=== PATIENT | male | born 1965 | race American Indian/Alaskan Native ===

== ENCOUNTER 2016-10-05 11:48 | Emergency (ER) | payer MEDICAID ==
[2016-10-05 12:08] VITALS: BP 135/39
[2016-10-05] MEDS ORDERED: Acetaminophen/oxyCODONE 325-5 MG Tab PO ONE (12:30)
[2016-10-05] MEDS ORDERED: Cyclobenzaprine 10 MG Tab PO ONE (12:30)
--- NOTE | 2016-10-05 12:36 | EDM.PDOC ---
ED HPI LOWER BACK PAIN/INJURY - General Chief Complaint: Back Pain or Injury Stated Complaint: BACK PAIN Time Seen by Provider: 10/05/16 12:16 Source: Reports: Patient, Old records, RN notes reviewed - History of Present Illness INITIAL COMMENTS - FREE TEXT/NARRATIVE: 51-year-old gentleman presents emergency Department with a complaint of back pain, he was in the emergency department in [facility] on September 29 for complaints of back pain used a variety of medications including Toradol, Dilaudid, morphine, Benadryl, Reglan to get his pain under control he went through an MRI procedure of the lumbar spine which demonstrated mild spinal stenosis predominantly L3-L4 region with left foraminal stenosis. He was discharged home with hydrocodone for pain control asked to follow up with his primary care in 2-3 days if no improvement. He states he has not been able to get out of bed because the pain is so severe asked him if the hydrocodone helps her pain control he states he does not know. He declines any injections or needles but preferred to have oral medication. Denies any loss of bowel or bladder. Does complain of shooting pains down the right leg Review of the [place] prescription drug monitoring site shows the only narcotic prescriptions with the ones provided from the [place] emergency department on September 29 - Related Data Allergies/ADRs: Allergies Allergy/AdvReac Type Severity Reaction Status Date / Time codeine Allergy Nausea Verified 10/05/16 12:09 Home Meds: Home Meds Gabapentin [Neurontin] 300 mg PO QID 10/05/16 [History] Past Medical History Musculoskeletal History: Reports: Back pain, chronic, Connective tissue disease - Past Surgical History Other Musculoskeletal Surgeries/Procedures:: bulging disk upper back. Social & Family History - Tobacco Use Smoking Status *Q: Light Tobacco Smoker Years of Tobacco use: 1 Packs/Tins Daily: 30 - Caffeine Use Caffeine Use: Reports: Coffee, Soda - Recreational Drug Use Recreational Drug Use: No ED ROS GENERAL - Review of Systems Review Of Systems: See Below Constitutional: Reports: no symptoms Respiratory: Reports: No Symptoms Cardiovascular: Reports: No symptoms Musculoskeletal: Reports: back pain Neurological: Reports: Paresthesia, Tingling ED EXAM,LOWER BACK PAIN/INJURY - Physical Exam Exam: See Below Text/Narrative:: In general this is a 51-year-old gentleman who is in moderate discomfort secondary to pain unable to answer questions other than single word sentences very poor historian and vague with his responses routinely says he does not know when asked about treatments with a provided help or not. He is alert and orientated x3. Examination of the back and appreciate any abnormality he has limited range of motion secondary to pain he is tender to palpation along the right paraspinal muscles with no vertebral tenderness. Patella reflex is 2+ bilaterally he will not tolerate a straight leg raise test has difficulty sitting still secondary to pain Exam Limited By: No limitations General Appearance: alert, moderate distress Respiratory/Chest: no respiratory distress Course - Vital Signs Last Recorded V/S: Last Vital Signs Temp 97.3 F 10/05/16 12:14 Pulse 80 10/05/16 12:14 Resp 20 10/05/16 12:14 BP 135/39 L 10/05/16 12:14 Pulse Ox 96 10/05/16 12:14 - Orders/Labs/Meds Meds: Medications Discontinued Medications Generic Name Dose Route Start Last Admin Trade Name Yumiko PRN Reason Stop Dose Admin Cyclobenzaprine HCl 10 mg 10/05/16 12:30 10/05/16 12:39 Flexeril PO 10/05/16 12:31 10 mg ONETIME ONE Administration Fentanyl 100 mcg 10/05/16 13:18 10/05/16 13:25 Sublimaze NASBOTH 10/05/16 13:19 100 mcg ONETIME ONE Administration Oxycodone/Acetaminophen 1 tab 10/05/16 12:30 10/05/16 12:40 Percocet 325-5 Mg PO 10/05/16 12:31 1 tab ONETIME ONE Administration Departure - Departure Time of Disposition: 14:39 Disposition: Home, Self-Care 01 Condition: good Clinical Impression: Back pain Qualifiers: Back pain location: low back pain Chronicity: chronic Back pain laterality: right Sciatica presence: without sciatica Qualified Code(s): M54.5 - Low back pain; G89.29 - Other chronic pain Forms: ED Department Discharge Additional Instructions: Use ibuprofen as needed for baseline pain control, use hydrocodone for breakthrough pain, Please followup with your primary care provider in 3-5 days if not better, please call return to the emergency department with worsening of symptoms. - Assessment/Plan Plan: Assessment Acuity = acute on chronic Site and laterality = low back pain with a history of mild spinal stenosis at L3 -L4 Etiology = probable bulging disc pathology Manifestations = pain Location of injury = home Lab values = none Plan He had some relief with the Flexeril, Percocet and intranasal fentanyl, he would like to try an abdominal binder for back support and prescription written for 10 hydrocodone Patient was in agreement with the plan all questions were answered, they were instructed to return to the emergency department or call for worsening symptoms. This note was dictated using [employer] voice recognition software please call with any questions.
[2016-10-05] MEDS ORDERED: fentaNYL 100 MCG/2 ML SDV NASBOTH ONE (13:18)
== END 2016-10-05 14:46 | disposition home or self-care (01) ==
LOC: JP.ED 11:48
DX: M54.5 Low back pain (principal); F17.210 Nicotine dependence, cigarettes, uncomplicated; Z88.5 Allergy status to narcotic agent
CPT/HCPCS: 99283; A9270; J3010

== ENCOUNTER 2020-02-17 20:41 | Emergency (ER) | payer SELFPAY ==
[2020-02-17 20:52] VITALS: BP 143/87; PULSE 87
--- NOTE | 2020-02-17 21:00 | EDM.PDOC ---
ED HPI GENERAL MEDICAL PROBLEM - General Chief Complaint: Lower Extremity Injury/Pain Stated Complaint: LEFT KNEE PAIN Time Seen by Provider: 02/17/20 20:54 Source of Information: Reports: Patient History Limitations: Reports: No Limitations - History of Present Illness INITIAL COMMENTS - FREE TEXT/NARRATIVE: 54 yo male present with left knee pain. 1 week ago he twisted knee and has had pain since it does pop and has increasing pain. He has no hx of injury to knee. no other complaints Left Knee Pain Score (Numeric/FACES): 7 - Related Data Allergies Allergy/AdvReac Type Severity Reaction Status Date / Time codeine Allergy Nausea Verified 02/17/20 20:50 Home Meds: Home Meds NK [No Known Home Meds] 02/17/20 [History] Past Medical History Musculoskeletal History: Reports: Back Pain, Chronic, Connective Tissue Disease, Fracture Neurological History: Reports: Brain Injury, Head Trauma - Infectious Disease History Infectious Disease History: Reports: Chicken Pox, Shingles - Past Surgical History Other Musculoskeletal Surgeries/Procedures:: bulging disk upper back. Social & Family History - Family History Family Medical History: Noncontributory - Tobacco Use Smoking Status *Q: Current Every Day Smoker Years of Tobacco use: 40 Packs/Tins Daily: 0.5 - Caffeine Use Caffeine Use: Reports: Tea - Recreational Drug Use Recreational Drug Use: Yes Recreational Drug Type: Reports: Marijuana/Hashish Recreational Drug Use Frequency: Monthly Review of Systems - Review of Systems Review Of Systems: See Below Constitutional: Denies: Chills, Fever Respiratory: Denies: Shortness of Breath, Wheezing Cardiovascular: Denies: Chest Pain ED EXAM, GENERAL - Physical Exam Exam: See Below Exam Limited By: No Limitations General Appearance: Alert, WD/WN Respiratory/Chest: No Respiratory Distress Extremities: Other (left knee pain with palpation at medial joint line and with medially rotated extention. neg drawer. very mild edema. no erythema or ecchymosis) Course - Vital Signs Last Recorded V/S: Last Vital Signs Temp 36.3 C 02/17/20 20:51 Pulse 87 02/17/20 20:51 Resp 16 02/17/20 20:51 BP 143/87 H 02/17/20 20:51 Pulse Ox 95 02/17/20 20:51 Departure - Departure Time of Disposition: 21:18 Disposition: Home, Self-Care 01 Condition: Good Clinical Impression: Knee injury Qualifiers: Encounter type: initial encounter Laterality: left Qualified Code(s): S89.92XA - Unspecified injury of left lower leg, initial encounter - Discharge Information *PRESCRIPTION DRUG MONITORING PROGRAM REVIEWED*: Not Applicable *COPY OF PRESCRIPTION DRUG MONITORING REPORT IN PATIENT SAMUEL: Not Applicable Instructions: Knee Sprain, Adult, [id number] Referrals: PCP,None [Primary Care Provider] - Forms: ED Department Discharge Additional Instructions: activity as tolerated weight bearing as tolerated ortho will call with appt time this week ice ibuprofen 400-600 mg every 6 hours for pain Sepsis Event Note (ED) - Evaluation Sepsis Screening Result: No Definite Risk - Focused Exam Vital Signs: Vital Signs Temp Pulse Resp BP Pulse Ox 02/17/20 20:51 36.3 C 87 16 143/87 H 95
== END 2020-02-17 21:39 | disposition home or self-care (01) ==
LOC: JP.ED 20:41
DX: S89.92XA Unspecified injury of left lower leg, initial encounter (principal); Z88.5 Allergy status to narcotic agent; F17.210 Nicotine dependence, cigarettes, uncomplicated; X50.1XXA Overexertion from prolonged static or awkward postures, initial encounter
CPT/HCPCS: 99283